=== PATIENT | male | born 1950 | race Hispanic/Latino ===

== ENCOUNTER → 2021-01-16 | Day surgery (SDC) | payer MEDICARE, MEDICAID ==
[~2021-01-16] MED LIST: Famotidine/PF 20 mg/2ml Vial ONE; Fentanyl 100 MCG/2 ML VIAL ONE; Gentamicin 80 MG/2 ML VIAL ONE; Lidocaine 1% (PF) 30 ML VIAL ONE; Mag-Al Plus 1200 MG/1200 MG/120 MG/30 ML UDCUP ONE; Ondansetron PF 4 MG/2 ML Vial ONE; Propofol 1,000 MG/100 ML VIAL IV ONE; Sodium Chloride 0.9% 1,000 ML ONE; Vancomycin HCl 500 MG VIAL ONE; cloNIDine 0.1 MG TAB ONE; diphenhydrAMINE 50 MG/ML VIAL ONE; hydrALAZINE 20 MG/ML VIAL ONE; methylPREDNISolone Sod Succ/PF 125 MG/2 ML VIAL ONE
[2021-01-16 06:24] VITALS: BMI 27.9
[2021-01-16 07:08] VITALS: BP 221/100; TEMP 97
== END ==
LOC: CSHSDC 06:01
PROVIDERS: ATTEND Internal Medicine Cardiovascular Disease
DX: I44.2 Atrioventricular block, complete (principal); I12.0 Hypertensive chronic kidney disease with stage 5 chronic kidney disease or end stage renal disease; N18.6 End stage renal disease; C61 Malignant neoplasm of prostate; Z79.899 Other long term (current) drug therapy
CPT/HCPCS: 33208; 71045; 93306; C1763; C1785; C1898 ×2; J0360; J1200; J1580; J2001; J2405; J2704; J2930; J3010; J3370; J7050; S0028